=== PATIENT | female | born 1935 | race Two or more races ===

== ENCOUNTER 2019-04-29 02:11 | Emergency (ER) | payer MEDICARE, OTHER ==
[~2019-04-29] VITALS: Ht 152.4 cm; Wt 87.1 kg
[~2019-04-29 02:11] MED LIST: ATENOLOL; VALS160T2 PO
--- NOTE | 2019-04-29 02:33 | NUR ---
BIB [facility] FROM HOME. 2 FAMILY MEMBERS AT BEDSIDE. PT COMPLAINING OF VOMITING AND DIARRHEA X 1 HR. NO CHEST PAIN, NO DYSURIA. PT A/OX4. RR EVEN AND UNLABORED. V/S STABLE. NO SOB NOTED. WAITING FOR MD PRESCOTT.
--- NOTE | 2019-04-29 02:40 | NUR ---
IV INITIATED. LINE ON L AC #20G. PATENT AND INTACT. SALINE LOCK. Addendum: 04/29/19 at 0300 by JDEFELIPE LABS DRAWN FROM L AC #20G. NUTRITIONIST AT BEDSIDE TO COLLECT LABS.
[2019-04-29] MEDS ORDERED: ONDANSETRON HCL/PF 4 MG/2 ML VIAL ONE (02:41)
[2019-04-29 02:58] LABS: BASOPHILS # (AUTO) 0.1 /CMM (0.0-0.2); BASOPHILS % (AUTO) 0.4 % (0.0-2.0); EOSINOPHILS % (AUTO) 1.9 % (0.0-6.0); HEMATOCRIT 39 % (33-45); HEMOGLOBIN 13.2 g/dL (11.5-14.8); LYMPHOCYTES # (AUTO) 1.3 /CMM (0.8-4.8); LYMPHOCYTES % (AUTO) 8.8 % (20.0-44.0); MEAN CORPUSCULAR HGB CONC 34 g/dl (31.0-36.0); MEAN CORPUSCULAR VOLUME 90 fL (82-100); MONOCYTES # (AUTO) 1.3 /CMM (0.1-1.30); MONOCYTES % (AUTO) 8.5 % (2.0-12.0); NEUTROPHILS # (AUTO) 11.8 /CMM (1.8-8.9); NEUTROPHILS % (AUTO) 80.4 % (43.0-81.0); PLATELET COUNT (AUTO) 224 /CMM (150-450); RED BLOOD CELL COUNT(AUTO) 4.38 MIL/uL (4.0-5.2); WHITE BLOOD COUNT (AUTO) 14.7 K/uL (4.3-11.0)
[2019-04-29] MEDS ORDERED: ONDANSETRON HCL/PF - ER 4 MG/2 ML VIAL IV ONE (03:00)
[2019-04-29] MEDS ORDERED: IV NS 0.9% 1,000 ML BAG IV ONE (03:00)
[2019-04-29 03:05] LABS: CALCIUM, SERUM 8.6 mg/dL (8.5-10.1); CARBON DIOXIDE 31 mmol/L (21-32); CHLORIDE 106 mmol/L (98-107); CREATININE 1.1 mg/dL (0.6-1.3); GLUCOSE 128 mg/dL (74-106); POTASSIUM 3.8 mmol/L (3.5-5.1); SODIUM SERUM 142 mmol/L (136-145); UREA NITROGEN, BLOOD 21 mg/dL (7-18)
--- NOTE | 2019-04-29 03:45 | NUR ---
Patient discharged to home in stable condition. Written and verbal after care instructions given. Patient verbalizes understanding of instruction. IV removed. Catheter intact and site benign. Pressure and 4x4 applied to site. No bleeding noted. Pt ambulatory with a steady gait
[2019-04-29 03:46] VITALS: BP 132/66
== END 2019-04-29 03:46 | disposition home or self-care (01) ==
LOC: ER 02:17
DX: K52.9 Noninfective gastroenteritis and colitis, unspecified (principal); I10 Essential (primary) hypertension; Z79.899 Other long term (current) drug therapy
CPT/HCPCS: 36415; 80048; 85025; 96361; 96374; 99283; J2405; J7030

== ENCOUNTER 2019-08-11 00:02 | Emergency (ER) | payer MEDICARE, OTHER ==
[~2019-08-11] VITALS: Ht 152.4 cm; Wt 88.0 kg
--- NOTE | 2019-08-11 00:04 | NUR ---
PT BIB EMS C/O FLU LIKE SX, HIGH BLOODPRESSURE, N/V X1 DAY. GIVEN CLONIDINE 0.1MG PO BY FAMILY MEMBER BEFORE CALLING 911. NAD NOTED RESP EVEN AND UNLABORED. PT KITTITIAN SPEAKING ONLY. PT ON MONITOR IN BED 3. WILL CONTINUE TO MONITOR.
--- NOTE | 2019-08-11 00:08 | NUR ---
DAUGHTER AT BEDSIDE
[2019-08-11] MEDS ORDERED: ONDANSETRON HCL/PF 4 MG/2 ML VIAL ONE (00:15)
--- NOTE | 2019-08-11 00:25 | NUR ---
BLOOD DRAWN AND GIVEN TO LAB
--- NOTE | 2019-08-11 00:27 | NUR ---
TECH AT BEDSIDE FOR EKG
[2019-08-11 00:28] LABS: BASOPHILS # (AUTO) 0.1 /CMM (0.0-0.2); BASOPHILS % (AUTO) 0.6 % (0.0-2.0); EOSINOPHILS % (AUTO) 0.5 % (0.0-6.0); HEMATOCRIT 39 % (33-45); HEMOGLOBIN 12.5 g/dL (11.5-14.8); LYMPHOCYTES # (AUTO) 1.1 /CMM (0.8-4.8); MEAN CORPUSCULAR HGB CONC 33 g/dl (31.0-36.0); MEAN CORPUSCULAR VOLUME 90 fL (82-100); MONOCYTES # (AUTO) 1.1 /CMM (0.1-1.30); MONOCYTES % (AUTO) 7.6 % (2.0-12.0); NEUTROPHILS # (AUTO) 11.7 /CMM (1.8-8.9); NEUTROPHILS % (AUTO) 83.3 % (43.0-81.0); PLATELET COUNT (AUTO) 282 /CMM (150-450); RED BLOOD CELL COUNT(AUTO) 4.29 MIL/uL (4.0-5.2); WHITE BLOOD COUNT (AUTO) 14.1 K/uL (4.3-11.0)
[2019-08-11] MEDS ORDERED: ONDANSETRON HCL/PF 4 MG/2 ML VIAL IV ONE (00:30)
--- NOTE | 2019-08-11 00:40 | NUR ---
RADIOLOGY AT BEDSIDE FOR XRAY
[2019-08-11 00:50] LABS: ALANINE AMINOTRANSFERASE 28 U/L (12-78); ALBUMIN 3.1 g/dL (3.4-5.0); ALKALINE PHOSPHATASE 101 U/L (46-116); ASPARTATE AMINOTRANSFERASE 21 U/L (15-37); B-TYPE NATRIURETIC PEPTIDE 842 PG/ML (0-125); BILIRUBIN,DIRECT 0.1 mg/dL (0.0-0.2); BILIRUBIN,TOTAL 0.4 mg/dL (0.2-1.0); CALCIUM, SERUM 8.9 mg/dL (8.5-10.1); CARBON DIOXIDE 32 mmol/L (21-32); CHLORIDE 105 mmol/L (98-107); CREATININE 0.9 mg/dL (0.6-1.3); GLUCOSE 138 mg/dL (74-106); SODIUM SERUM 143 mmol/L (136-145); TOTAL PROTEIN, SERUM 6.9 g/dL (6.4-8.2); UREA NITROGEN, BLOOD 21 mg/dL (7-18)
[2019-08-11 01:15] VITALS: BP 126/63
--- NOTE | 2019-08-11 01:16 | NUR ---
PT NO LONGER NAUSEOUS
--- NOTE | 2019-08-11 01:44 | NUR ---
IV removed. Catheter intact and site benign. Pressure and 4x4 applied to site. No bleeding noted. AFTER CARE INSTRUCTIONS PROVIDED VERBALLY PER MD AND NURSE. PATIENT VERBALIZED UNDERSTANDING.
== END 2019-08-11 01:45 | disposition home or self-care (01) ==
LOC: ER 00:03
DX: R11.2 Nausea with vomiting, unspecified (principal); I10 Essential (primary) hypertension; Z79.899 Other long term (current) drug therapy
CPT/HCPCS: 36415; 71045; 80048; 80076; 83605; 83880; 84484; 85025; 85730; 87040 ×2; 87804 ×2; 93005; 96374; 99284; J2405

== ENCOUNTER 2022-07-10 04:02 | Emergency (ER) | payer MEDICARE, OTHER ==
[~2022-07-10] VITALS: Ht 149.9 cm; Wt 70.3 kg
--- NOTE | 2022-07-10 04:37 | NUR ---
BIBRA 839 FROM HOME FOR SUDDEN ONSET ON L FLANK PAIN. PT AWAKE AND ALERT X4 BREATHING UNLABORED. V/S WNL. WAS AT BEDSIDE FOR EVAL.
[2022-07-10] MEDS ORDERED: ONDANSETRON HCL/PF 4 MG/2 ML VIAL ONE (04:44)
[2022-07-10] MEDS ORDERED: HYDROMORPHONE 1 MG/1 ML DISP.SYRIN ONE (04:44)
--- NOTE | 2022-07-10 04:50 | NUR ---
20g IV at lac. blood drawn and sent to lab
[2022-07-10] MEDS ORDERED: IV NS 0.9% 500 ML BAG IV ONE (05:00)
[2022-07-10] MEDS ORDERED: HYDROMORPHONE INJ 2 MG/ML DISP.SYRIN IV ONE (05:00)
[2022-07-10] MEDS ORDERED: ONDANSETRON HCL/PF 4 MG/2 ML VIAL IVP ONE (05:00)
[2022-07-10 05:29] LABS: BASOPHILS # (AUTO) 0.1 K/uL (0.0-0.2); BASOPHILS % (AUTO) 0.7 % (0.0-2.0); EOSINOPHILS % (AUTO) 1.4 % (0.0-6.0); HEMATOCRIT 38 % (33-45); HEMOGLOBIN 12.2 g/dL (11.5-14.8); LYMPHOCYTES % (AUTO) 23.7 % (20.0-44.0); MEAN CORPUSCULAR HGB CONC 33 g/dl (31.0-36.0); MEAN CORPUSCULAR VOLUME 89 fL (82-100); MONOCYTES # (AUTO) 0.6 K/uL (0.1-1.30); NEUTROPHILS # (AUTO) 5.6 K/uL (1.8-8.9); NEUTROPHILS % (AUTO) 67.2 % (43.0-81.0); PLATELET COUNT (AUTO) 236 K/uL (150-450); WHITE BLOOD COUNT (AUTO) 8.3 K/uL (4.3-11.0)
[2022-07-10 05:40] LABS: CALCIUM, SERUM 8.6 mg/dL (8.5-10.1); CREATININE 1.1 mg/dL (0.6-1.3); POTASSIUM 3.7 mmol/L (3.5-5.1)
[2022-07-10 05:53] LABS: ALBUMIN 3.1 g/dL (3.4-5.0); BILIRUBIN,DIRECT 0.1 mg/dL (0.0-0.2); BILIRUBIN,TOTAL 0.5 mg/dL (0.2-1.0); TOTAL PROTEIN, SERUM 6.4 g/dL (6.4-8.2)
[2022-07-10] MEDS ORDERED: IV NS 0.9% 250 ML IV ONE (06:20)
[2022-07-10] MEDS ORDERED: IOHEXOL-350 100 ML VIAL IV ONE (06:20)
[2022-07-10] MEDS ORDERED: CT SWABBABLE VALVE TRANS SET 1 EA INFUS.SET MC ONE (06:20)
[2022-07-10] MEDS ORDERED: diphenhydrAMINE HCL 50 MG/ML VIAL ONE (06:56)
[2022-07-10] MEDS ORDERED: METOCLOPRAMIDE HCL 10 MG/2 ML VIAL ONE (06:57)
[2022-07-10] MEDS ORDERED: METOCLOPRAMIDE HCL 10 MG/2 ML VIAL IV ONE (07:00)
[2022-07-10] MEDS ORDERED: diphenhydrAMINE HCL 50 MG/ML VIAL IV ONE (07:00)
--- NOTE | 2022-07-10 07:15 | NUR ---
Receved pt from TERRI TAVERAS PT asleepy arusple when call name mark at bed side
[2022-07-10] MEDS ORDERED: ATOR10TA PO (07:16)
[2022-07-10] MEDS ORDERED: ATEN25TA PO (07:16)
[2022-07-10] MEDS ORDERED: CYAN-51 PO (07:16)
[2022-07-10] MEDS ORDERED: TRAZ-182 PO (07:16)
[2022-07-10] MEDS ORDERED: ASPI-1420 PO (07:16)
[2022-07-10] MEDS ORDERED: CLON0.1T PO (07:16)
[2022-07-10] MEDS ORDERED: AMLO-212 PO (07:16)
--- NOTE | 2022-07-10 08:30 | NUR ---
VITAL SIGNS WITHIN NORMAL LIMITS.
--- NOTE | 2022-07-10 09:30 | NUR ---
wating for CT scan
--- NOTE | 2022-07-10 10:09 | NUR ---
RECETING And asleepy no sob
--- NOTE | 2022-07-10 10:40 | NUR ---
UA SENT TO LAB
--- NOTE | 2022-07-10 10:43 | NUR ---
IV removed. Catheter intact and site benign. Pressure and 4x4 applied to site. No bleeding noted.
[2022-07-10] MEDS ORDERED: ACET325T53 PO (10:44)
--- NOTE | 2022-07-10 10:45 | NUR ---
Patient discharged to home in stable condition. Written and verbal after care instructions given. Patient verbalizes understanding of instruction.
[2022-07-10 11:01] VITALS: BP 149/65
[2022-07-10 11:12] LABS: BILIRUBIN,URINE NEGATIVE (NEGATIVE); COLOR,URINE YELLOW (YELLOW); LEUKOCYTE ESTERASE ,URINE NEGATIVE (NEGATIVE); NITRITE, URINE NEGATIVE (NEGATIVE); PH,URINE 5.5 (5.0-8.0); PROTEIN,URINE NEGATIVE (NEGATIVE); UGLUCOSE NEGATIVE (NEGATIVE); UROBILINOGEN,URINE 0.2 EU/dL (0.2)
[2022-07-10 11:34] LABS: BACTERIA,URINE Few /HPF (None Seen); RBC,URINE 0-2 /HPF (0-2); SQUAMOUS EPITHELIAL CELL,UR Few /HPF (None Seen); WBC,URINE 0-2 /HPF (0-3)
== END 2022-07-10 11:02 | disposition home or self-care (01) ==
LOC: ER 04:07
DX: R10.9 Unspecified abdominal pain (principal); I10 Essential (primary) hypertension; Z79.899 Other long term (current) drug therapy
CPT/HCPCS: 99285; 96374; 74175; 96375; 96361; 85025; 80048; 83690; 80076; 81001; 36415; 85730; J1200; J2765; J2405; J7050; J7040; Q9967; J1170; A6403

== ENCOUNTER 2023-11-27 07:37 | Emergency (ER) | payer MEDICARE, OTHER ==
[~2023-11-27] VITALS: Ht 160 cm; Wt 76.2 kg
[~2023-11-27 07:37] MED LIST changes: +ACET325T53 PO; +AMLO-212 PO; +ASPI-1420 PO; +ATEN25TA PO; -ATENOLOL; +ATOR10TA PO; +CLON0.1T PO; +CYAN-51 PO; +TRAZ-182 PO; -VALS160T2 PO
[2023-11-27] MEDS ORDERED: predniSONE 20 MG TABLET ONE (08:09)
[2023-11-27] MEDS ORDERED: ALBUTEROL FS 2.5 MG/3 ML VIAL.NEB ONE (08:12)
[2023-11-27] MEDS ORDERED: IPRATROPIUM NEB FS 0.5 MG/2.5 ML AMPUL.NEB ONE (08:12)
[2023-11-27] MEDS: predniSONE 50 MG TABLET PO ONE (08:26)
[2023-11-27 08:30] LABS: BASOPHILS # (AUTO) 0.1 K/uL (0.0-0.2); BASOPHILS % (AUTO) 0.6 % (0.0-2.0); EOSINOPHILS # (AUTO) 0.1 K/uL (0.0-0.7); EOSINOPHILS % (AUTO) 0.4 % (0.0-6.0); HEMATOCRIT 38 % (33-45); HEMOGLOBIN 12.4 g/dL (11.5-14.8); LYMPHOCYTES # (AUTO) 1.8 K/uL (0.8-4.8); LYMPHOCYTES % (AUTO) 13.2 % (20.0-44.0); MEAN CORPUSCULAR HEMOGLOBIN 29 PG (26.0-33.0); MEAN CORPUSCULAR HGB CONC 33 g/dl (31.0-36.0); MEAN CORPUSCULAR VOLUME 88 fL (82-100); MONOCYTES # (AUTO) 1.3 K/uL (0.1-1.30); MONOCYTES % (AUTO) 9.4 % (2.0-12.0); NEUTROPHILS # (AUTO) 10.6 K/uL (1.8-8.9); NEUTROPHILS % (AUTO) 76.4 % (43.0-81.0); PLATELET COUNT (AUTO) 276 K/uL (150-450); RED BLOOD CELL COUNT(AUTO) 4.27 MIL/uL (4.0-5.2); WHITE BLOOD COUNT (AUTO) 13.9 K/uL (4.3-11.0)
[2023-11-27 08:33] VITALS: O2SAT 97
[2023-11-27] MEDS: IPRATROPIUM NEB FS 0.5 MG/2.5 ML AMPUL.NEB NEB ONE (08:33)
[2023-11-27] MEDS: ALBUTEROL FS 2.5 MG/3 ML VIAL.NEB NEB ONE (08:33)
[2023-11-27 08:45] VITALS: O2SAT 100
[2023-11-27 08:48] LABS: CALCIUM, SERUM 8.4 mg/dL (8.5-10.1); CARBON DIOXIDE 28 mmol/L (21-32); CHLORIDE 106 mmol/L (98-107); GLUCOSE 164 mg/dL (74-106); POTASSIUM 3.3 mmol/L (3.5-5.1); SODIUM SERUM 143 mmol/L (136-145); UREA NITROGEN, BLOOD 13 mg/dL (7-18)
[2023-11-27] MEDS ORDERED: ALBU8.5H8 INH (09:41)
[2023-11-27] MEDS ORDERED: PRED50TA PO (09:41)
[2023-11-27] MEDS ORDERED: AZIT250T PO (09:41)
[2023-11-27 09:55] VITALS: BP 152/68; TEMP 98.4; O2SAT 100
== END 2023-11-27 09:55 | disposition home or self-care (01) ==
LOC: ER 07:37
DX: J40 Bronchitis, not specified as acute or chronic (principal); I10 Essential (primary) hypertension; Z79.899 Other long term (current) drug therapy; Z20.822 Contact with and (suspected) exposure to COVID-19
CPT/HCPCS: 99285; 71045; 87426; 93005; 87804 ×2; 84145; 85025; 80048; 87040 ×2; 36415; 94640; J7512